=== PATIENT | male | born 1945 | race Caucasian/White ===

== ENCOUNTER → 2021-02-02 | Outpatient (REF) | payer MEDICARE | LOC: M LAB REF 17:29 | PROVIDERS: ATTEND Physician Assistant | DX: C44.212 Basal cell carcinoma of skin of right ear and external auricular canal (principal) | CPT/HCPCS: 11102; 88305; G0463 ==

== ENCOUNTER → 2021-03-21 | Outpatient (REF) | payer MEDICARE | LOC: M LAB REF 13:53 | PROVIDERS: ATTEND Physician Assistant | DX: D04.5 Carcinoma in situ of skin of trunk (principal) ==

== ENCOUNTER → 2021-05-19 | Outpatient (REF) | payer MEDICARE | LOC: M LAB REF 17:07 | PROVIDERS: ATTEND Dermatology | DX: D04.5 Carcinoma in situ of skin of trunk (principal) ==

== ENCOUNTER → 2021-05-25 | Outpatient (REF) | payer MEDICARE | LOC: M LAB REF 17:27 | PROVIDERS: ATTEND Dermatology | DX: Z51.89 Encounter for other specified aftercare (principal); Z79.899 Other long term (current) drug therapy ==

== ENCOUNTER → 2023-11-05 | Outpatient (CLI) | payer MEDICARE ==
[~2023-11-05] MED LIST: ISOVUE-370 76% 100ML VIAL As Ordered ONE
== END ==
LOC: M RAD 12:04
PROVIDERS: ATTEND Surgery Vascular Surgery
DX: I73.9 Peripheral vascular disease, unspecified (principal); R93.5 Abnormal findings on diagnostic imaging of other abdominal regions, including retroperitoneum
CPT/HCPCS: 75635; Q9967

== ENCOUNTER 2024-11-12 07:32 | Inpatient (IN) | payer MEDICARE, MEDICAID ==
[~2024-11-12] VITALS: Ht 170.2 cm; Wt 70.1 kg
[2024-11-12 08:16] LABS: BASO # 0.1 10^3/uL (0.0-0.2); BASO % 0.9 % (0.0-1.0); EOS # 0.2 10^3/uL (0.0-0.5); EOS % 2.8 % (0.0-3.0); LYMPH # 1.0 10^3/uL (1.5-5.0); LYMPH % 12.4 % (24.0-44.0); MONO # 0.6 10^3/uL (0.0-0.8); MONO % 7.4 % (2.0-8.0); NEUTROPHILS # 6.3 10^3/uL (1.5-8.5); NEUTROPHILS % 76.3 % (36.0-66.0); PLATELET COUNT, AUTOMATED 136 10^3/uL (150-450)
[2024-11-12 08:31] LABS: INR 0.9
[2024-11-12 08:41] LABS: ALT/SGPT 18 U/L (7.0-40); AST/SGOT 15 U/L (<34); CALCIUM LEVEL 9.0 MG/DL (8.3-10.6); CARBON DIOXIDE LEVEL 28 MMOL/L (20-31); CHLORIDE LEVEL 105 MMOL/L (98-107); CREATININE FOR GFR 1.15 MG/DL (0.70-1.30); GLOMERULAR FILTRATION RATE 65.1 (>42); POTASSIUM SERUM 4.9 MMOL/L (3.5-5.1); SODIUM LEVEL 145 MMOL/L (136-145)
[2024-11-12] MEDS: NS (Normal Saline) 0.9% 1,000 ML IV SCH (09:39)
[2024-11-12] MEDS ORDERED: ISOVUE-370 76% 100 ML VIAL As Ordered ONE (09:57)
[2024-11-12] MEDS ORDERED: ASPE4PAD TOP (10:40)
[2024-11-12] MEDS ORDERED: ACET-907 PO (10:40)
[2024-11-12] MEDS ORDERED: DAPA5TAB4 PO (10:40)
[2024-11-12] MEDS ORDERED: SENN-122 PO (10:40)
[2024-11-12] MEDS ORDERED: LORA-1164 PO (10:40)
[2024-11-12] MEDS ORDERED: DULO1CAP5 PO (10:40)
[2024-11-12] MEDS ORDERED: HOME MED LIST COMPLETE! XX SCH (10:40)
[2024-11-12] MEDS ORDERED: PREG50CA3 PO (10:40)
[2024-11-12] MEDS ORDERED: MELA5TAB58 PO (10:40)
[2024-11-12] MEDS ORDERED: VENTAER INH (10:40)
[2024-11-12] MEDS ORDERED: FINA5TAB2 PO (10:40)
[2024-11-12] MEDS ORDERED: DULA4.5P SUBQ (10:40)
[2024-11-12] MEDS ORDERED: METF-838 PO (10:40)
[2024-11-12] MEDS ORDERED: FAMO20TA PO (10:40)
[2024-11-12] MEDS ORDERED: TAMS1CAP17 PO (10:40)
[2024-11-12] MEDS ORDERED: METO1TAB7 PO (10:40)
[2024-11-12] MEDS: LR 1,000 ML IV ONE (12:44)
[2024-11-12] MEDS: PANTOPRAZOLE 40MG VIAL IV ONE (12:44)
[2024-11-12 13:00] LABS: IRON (FE) 76 UG/DL (65-175)
[2024-11-12 13:01] LABS: PERCENT SATURATION 26.5 % (19.7-50.0)
[2024-11-12] MEDS: D5W/0.45% SODIUM CHLORIDE 1,000 ML IV SCH (14:34)
[2024-11-12 16:09] VITALS: BP 146/78; TEMP 97.6; O2SAT 95
[2024-11-12] MEDS ORDERED: ACETAMINOPHEN 325 MG TAB PO PRN (18:30)
[2024-11-12] MEDS ORDERED: SENNOSIDES/DOCUSATE SODIUM 8.6 MG/50MG TAB PO PRN (18:30)
[2024-11-12] MEDS: METOPROLOL SUCC. 25 MG *XL* TAB PO ONE (18:45)
[2024-11-12 19:07] LABS: IONIZED CALCIUM 4.8 MG/DL (4.5-5.3)
[2024-11-12 19:34] LABS: CK-MB VALUE MASS 3.0 NG/ML (<3.6)
[2024-11-12 19:35] LABS: CPK CREATINE PHOSPHOKINASE 34.0 U/L (46-171); MAGNESIUM LEVEL 1.7 MG/DL (1.8-2.4); MB/CK RELATIVE INDEX 8.82 (< OR =4); PHOSPHORUS LEVEL 3.4 MG/DL (2.4-5.1)
[2024-11-12 20:12] VITALS: BP 110/62; TEMP 96.8; O2SAT 94
[2024-11-12] MEDS: PREGABALIN 50 MG CAP PO SCH (20:28)
[2024-11-12] MEDS: TAMSULOSIN 0.4 MG CAP PO SCH (20:28)
[2024-11-12 22:33] VITALS: BP 110/59; TEMP 97.1; O2SAT 93
[2024-11-12 22:49] VITALS: BP 98/58; TEMP 97.8
[2024-11-12 23:34] VITALS: BP 104/64; TEMP 97; O2SAT 96
[2024-11-13] VITALS (9 sets, daily range): BP systolic 100–141; BP diastolic 53–75; TEMP 97–98; O2SAT 94–97
[2024-11-13] MEDS: FLEET ENEMA PR ONE (06:20)
[2024-11-13 07:15] LABS: CALCIUM LEVEL 7.9 MG/DL (8.3-10.6); CARBON DIOXIDE LEVEL 26.0 MMOL/L (20-31); CHLORIDE LEVEL 108.0 MMOL/L (98-107); CREATININE FOR GFR 1.11 MG/DL (0.70-1.30); GLOMERULAR FILTRATION RATE 68.0 (>42); POTASSIUM SERUM 4.1 MMOL/L (3.5-5.1); SODIUM LEVEL 144.0 MMOL/L (136-145)
[2024-11-13] MEDS: MAGNESIUM CITRATE 300 ML BTL PO ONE (08:29)
[2024-11-13] MEDS: PANTOPRAZOLE 40MG VIAL IV SCH (09:27)
[2024-11-13] MEDS ORDERED: PHENYLephrine 500MCG 5ML (100MCG/ML) SYRINGE As Ordered ONE (14:19)
[2024-11-13] MEDS: METOPROLOL SUCC. 50 MG *XL* TAB PO SCH (16:06)
[2024-11-13] MEDS: FINASTERIDE 5 MG TAB PO SCH (16:07)
[2024-11-13] MEDS: FAMOTIDINE 20 MG TAB PO SCH (16:07)
[2024-11-13] MEDS: LORATADINE 10 MG TAB PO SCH (16:07)
[2024-11-13] MEDS ORDERED: GLUCAGON INJ 1 MG VIAL SC PRN (16:35)
[2024-11-13] MEDS ORDERED: DEXTROSE 50% 50 ML SYRINGE IV PRN (16:35)
[2024-11-13] MEDS ORDERED: GLUCOSE 4 GM CHEW PO PRN (16:35)
[2024-11-13] MEDS: INSULIN LISPRO (NovoLOG) PER UNIT SC SCH ×2 (17:56→20:00)
[2024-11-14] VITALS (11 sets, daily range): BP systolic 107–131; BP diastolic 54–67; TEMP 97–97.6; O2SAT 95–98
[2024-11-14 07:04] LABS: CALCIUM LEVEL 7.8 MG/DL (8.3-10.6); CARBON DIOXIDE LEVEL 26.0 MMOL/L (20-31); CHLORIDE LEVEL 110.0 MMOL/L (98-107); CREATININE FOR GFR 1.15 MG/DL (0.70-1.30); GLOMERULAR FILTRATION RATE 65.1 (>42); POTASSIUM SERUM 4.3 MMOL/L (3.5-5.1); SODIUM LEVEL 145.0 MMOL/L (136-145)
[2024-11-15 03:33] VITALS: BP 108/54; TEMP 97.7; O2SAT 92
[2024-11-15 06:08] LABS: CALCIUM LEVEL 8.2 MG/DL (8.3-10.6); CARBON DIOXIDE LEVEL 28.0 MMOL/L (20-31); CHLORIDE LEVEL 108.0 MMOL/L (98-107); CREATININE FOR GFR 1.19 MG/DL (0.70-1.30); GLOMERULAR FILTRATION RATE 62.5 (>42); POTASSIUM SERUM 4.2 MMOL/L (3.5-5.1); SODIUM LEVEL 144.0 MMOL/L (136-145)
[2024-11-15 08:09] VITALS: BP 111/58; TEMP 97; O2SAT 94
[2024-11-15] MEDS: METOPROLOL TART 25 MG TABLET PO SCH (10:11)
[2024-11-15 12:16] VITALS: BP 112/61; TEMP 97.5; O2SAT 94
[2024-11-15 19:37] VITALS: BP 111/59; TEMP 98; O2SAT 95
[2024-11-15 20:00] VITALS: BP 111/59; TEMP 98; O2SAT 95
[2024-11-16 03:33] VITALS: BP 110/56; TEMP 97.8; O2SAT 95
[2024-11-16 04:00] VITALS: BP 110/56; TEMP 97.8; O2SAT 95
[2024-11-16 05:06] LABS: PLATELET COUNT, AUTOMATED 144 10^3/uL (150-450)
[2024-11-16 05:30] LABS: CALCIUM LEVEL 8.2 MG/DL (8.3-10.6); CARBON DIOXIDE LEVEL 28.0 MMOL/L (20-31); CHLORIDE LEVEL 106.0 MMOL/L (98-107); CREATININE FOR GFR 1.37 MG/DL (0.70-1.30); GLOMERULAR FILTRATION RATE 52.8 (>42); MAGNESIUM LEVEL 2.1 MG/DL (1.8-2.4); POTASSIUM SERUM 4.7 MMOL/L (3.5-5.1); SODIUM LEVEL 143.0 MMOL/L (136-145)
[2024-11-16 08:10] VITALS: BP 94/42; TEMP 97.2; O2SAT 94
[2024-11-16 10:54] VITALS: BP 149/71
[2024-11-16 16:30] VITALS: BP 102/64; TEMP 96.9; O2SAT 95
[2024-11-16 23:09] VITALS: BP 110/56; TEMP 98.2; O2SAT 92
[2024-11-17] VITALS (7 sets, daily range): BP systolic 100–148; BP diastolic 55–72; TEMP 97.3–97.9; O2SAT 94–98
[2024-11-17 05:29] LABS: PLATELET COUNT, AUTOMATED 150 10^3/uL (150-450)
[2024-11-17 05:59] LABS: CALCIUM LEVEL 8.4 MG/DL (8.3-10.6); CARBON DIOXIDE LEVEL 27.0 MMOL/L (20-31); CHLORIDE LEVEL 105.0 MMOL/L (98-107); CREATININE FOR GFR 1.38 MG/DL (0.70-1.30); GLOMERULAR FILTRATION RATE 52.3 (>42); MAGNESIUM LEVEL 1.9 MG/DL (1.8-2.4); POTASSIUM SERUM 4.5 MMOL/L (3.5-5.1); SODIUM LEVEL 144.0 MMOL/L (136-145)
[2024-11-18 03:10] VITALS: BP 106/59; TEMP 98.5; O2SAT 96
[2024-11-18 05:32] LABS: PLATELET COUNT, AUTOMATED 170 10^3/uL (150-450)
[2024-11-18 06:09] LABS: CALCIUM LEVEL 8.4 MG/DL (8.3-10.6); CARBON DIOXIDE LEVEL 28.0 MMOL/L (20-31); CHLORIDE LEVEL 104.0 MMOL/L (98-107); CREATININE FOR GFR 1.25 MG/DL (0.70-1.30); GLOMERULAR FILTRATION RATE 58.9 (>42); MAGNESIUM LEVEL 1.8 MG/DL (1.8-2.4); POTASSIUM SERUM 4.8 MMOL/L (3.5-5.1); SODIUM LEVEL 142.0 MMOL/L (136-145)
[2024-11-18 08:14] VITALS: BP 106/58
[2024-11-18 08:15] VITALS: BP 106/58; TEMP 98.1; O2SAT 98
== END 2024-11-18 14:13 | DRG 378 ==
LOC: EDBD 07:32 → M ED 07:32 → EEVIPCON 12:12 → M ED INP 12:12 → M PCU 15:59
PROVIDERS: ADMIT General Practice; ATTEND Family Medicine
PROC: 30233N1 Transfusion of Nonautologous Red Blood Cells into Peripheral Vein, Percutaneous Approach (ICD-10-PCS; 2024-11-12)
PROC: 0DJD8ZZ Inspection of Lower Intestinal Tract, Via Natural or Artificial Opening Endoscopic (ICD-10-PCS; principal; 2024-11-13 13:10)
DX: K57.93 Diverticulitis of intestine, part unspecified, without perforation or abscess with bleeding (principal); D62 Acute posthemorrhagic anemia; I47.20 Ventricular tachycardia, unspecified; E11.40 Type 2 diabetes mellitus with diabetic neuropathy, unspecified; E11.51 Type 2 diabetes mellitus with diabetic peripheral angiopathy without gangrene; F03.90 Unspecified dementia, unspecified severity, without behavioral disturbance, psychotic disturbance, mood disturbance, and anxiety; K40.90 Unilateral inguinal hernia, without obstruction or gangrene, not specified as recurrent; Z99.3 Dependence on wheelchair; J44.9 Chronic obstructive pulmonary disease, unspecified; I10 Essential (primary) hypertension; E78.5 Hyperlipidemia, unspecified; J45.909 Unspecified asthma, uncomplicated; Z87.891 Personal history of nicotine dependence; Z85.46 Personal history of malignant neoplasm of prostate; Z85.828 Personal history of other malignant neoplasm of skin; H54.42A3 Blindness left eye category 3, normal vision right eye; G47.00 Insomnia, unspecified; Z79.899 Other long term (current) drug therapy; Z88.8 Allergy status to other drugs, medicaments and biological substances